=== PATIENT | female | born 2005 | race Caucasian/White ===

== ENCOUNTER 2024-11-02 10:01 | Emergency (ER) | payer OTHER, MEDICAID, SELFPAY ==
[2024-11-02 10:12] VITALS: BP 134/80; PULSE 80; RESP 16; TEMP 36.6; O2SAT 100; BMI 27.4
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
[2024-11-02] MEDS: DIPHTH,PERTUSS(ACELL),TET VAC 0.5 ML SYR IMi (10:26)
[2024-11-02] MEDS: HYDROcodone/APAP 5/325 TABLET 1 TAB PO (10:26)
[2024-11-02 12:37] LABS: HCG Qualitative,Urine Negative
[2024-11-02 12:57] LABS: Amphetamine/Methamp Scrn,U Negative (Negative); Barbiturate Screen,Urine Negative (Negative); Benzodiazepines Screen,Urine Negative (Negative); Benzoylecgonine Screen, Ur Negative (Negative); Fentanyl Screen,Urine Negative (Negative); Opiate Screen,Urine Positive (Negative); THC Screen,Urine Positive (Negative)
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
[2024-11-02] MEDS: LIDOCAINE HCL 1% 20 ML VIAL 2.1 ML INFL (13:31)
[2024-11-02] MEDS: cefTRIAXone SOD INJ 1,000 MG VIAL 1000 MG IM (13:31)
[2024-11-02] MEDS: IBUPROFEN TAB 400 MG TABLET 800 MG PO (13:31)
== END 2024-11-02 13:45 | disposition home or self-care (01) ==
PROVIDERS: Nurse Practitioner Primary Care; Emergency Provider Emergency Medicine
DX: S80.812A Abrasion, left lower leg, initial encounter (principal); X58.XXXA Exposure to other specified factors, initial encounter; Y92.832 Beach as the place of occurrence of the external cause; Z23 Encounter for immunization
CPT/HCPCS: 73562; 73590; 73610; 73630; 80307; 81025; 90471; 90715; 96372; 99283; J0696; J3490; A9270

== ENCOUNTER 2025-02-02 11:44 | Emergency (ER) | payer OTHER, MEDICAID, SELFPAY ==
[2025-02-02 11:48] VITALS: BMI 22.7
[2025-02-02 11:49] VITALS: BP 114/74; PULSE 86; RESP 18; TEMP 36.6; O2SAT 98
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
--- NOTE | 2025-02-02 12:05 | PC.NURSE ---
PT CUSSING AND YELLING AT [employer] AND [employer].
== END 2025-02-02 12:18 | disposition home or self-care (01) ==
LOC: SERX 12:19
PROVIDERS: Emergency Provider Emergency Medicine
DX: Z02.89 Encounter for other administrative examinations (principal); S61.214A Laceration without foreign body of right ring finger without damage to nail, initial encounter; X99.1XXA Assault by knife, initial encounter; Z59.00 Homelessness unspecified
CPT/HCPCS: 99281